=== PATIENT | female | born 1990 | race Two or more races ===

== ENCOUNTER 2017-10-22 21:41 | Emergency (ER) | payer OTHER ==
[~2017-10-22] VITALS: Ht 165.1 cm; Wt 76.9 kg
[2017-10-22] MEDS ORDERED: KETOROLAC 30 MG/1 ML ONE (21:58)
[2017-10-22] MEDS ORDERED: KETOROLAC 30 MG/1 ML IM ONE (22:00)
[2017-10-22 22:12] LABS: BASOPHILS # (AUTO) 0.01 x10^3/uL (0-0.1); BASOPHILS % (AUTO) 0 % (0-1); EOSINOPHILS # (AUTO) 0.02 x10^3/uL (0-0.4); EOSINOPHILS % (AUTO) 0 % (1-7); LYMPHOCYTES # (AUTO) 3.57 x10^3/uL (1-3.4); LYMPHOCYTES % (AUTO) 39 % (22-44); MD NO; MEAN CORPUSCULAR HEMOGLOBIN 28.5 pg (27.0-34.8); MEAN CORPUSCULAR HGB CONC 33.5 g/dL (32.4-35.8); MEAN PLATELET VOLUME 8.7 fL (7.4-10.4); MONOCYTES # (AUTO) 0.57 x10^3/uL (0.2-0.8); MONOCYTES % (AUTO) 6 % (2-9); NEUTROPHILS # (AUTO) 4.93 x10^3/uL (1.8-6.8); NEUTROPHILS % (AUTO) 54 % (42-75); PLATELET COUNT 240 x10^3/uL (130-400); RED CELL DISTRIBUTION WIDTH 14.3 % (9.6-15.2)
[2017-10-22 22:24] LABS: ALBUMIN 4.1 g/dL (3.4-5.0); ANION GAP 7 mmol/L (5-15); CALCIUM 9.3 mg/dL (8.5-10.1); CHLORIDE 110 mmol/L (98-107); CREATININE 0.78 mg/dL (0.55-1.02)
[2017-10-22 22:28] LABS: TROPONIN I < 0.015 ng/mL (0.000-0.045)
[2017-10-22 22:33] VITALS: BP 122/84
== END 2017-10-22 22:54 | disposition home or self-care (01) ==
LOC: ED 22:02
DX: R07.9 Chest pain, unspecified (principal)
CPT/HCPCS: 36415; 71045; 80048; 82040; 83880; 84484; 85025; 85379; 93005; 96372; 99285; J1885

== ENCOUNTER 2019-04-04 05:40 | Emergency (ER) | payer OTHER ==
[~2019-04-04] VITALS: Ht 170.2 cm; Wt 80.0 kg
[~2019-04-04 05:40] MED LIST: HYDR-3652 PO; IBUP-1222 PO
[2019-04-04 05:41] VITALS: BP 124/78
[2019-04-04] MEDS ORDERED: DEXAMETHASONE 4 MG TABLET ONE (05:50)
--- NOTE | 2019-04-04 05:57 | NUR ---
Patient comes in bringing in child for exam. During this time expressed feeling herself sick, with a painful throat during eating and swallowing. Patient checked in and triaged in room. medications and ordered (see electronic medicine administration record)
[2019-04-04] MEDS ORDERED: DEXAMETHASONE 4 MG TABLET PO ONE (06:00)
--- NOTE | 2019-04-04 07:16 | NUR ---
DISCHARGE INSTRUCTIONS REVIEWED
== END 2019-04-04 07:18 | disposition home or self-care (01) ==
LOC: ED 05:46
DX: J03.90 Acute tonsillitis, unspecified (principal)
CPT/HCPCS: 99283